=== PATIENT | male | born 1980 | race Caucasian/White ===

== ENCOUNTER → 2020-03-16 | Outpatient (CLI) | payer OTHER | LOC: PLD 08:04 → LAB SHORT 08:04 | DX: D22.61 Melanocytic nevi of right upper limb, including shoulder (principal) | CPT/HCPCS: 88305 ==

== ENCOUNTER → 2021-10-11 | Outpatient (CLI) | payer OTHER | END | disposition home or self-care (01) | LOC: PLD 11:10 → LAB SHORT 11:10 | DX: D22.5 Melanocytic nevi of trunk (principal) | CPT/HCPCS: 88305 ==

== ENCOUNTER → 2022-12-24 | Outpatient (CLI) | payer OTHER | LOC: LAB SHORT 07:50 → PLD 07:50 | DX: C44.519 Basal cell carcinoma of skin of other part of trunk (principal) | CPT/HCPCS: 88305 ==